=== PATIENT | female | born 1935 | race Two or more races ===

== ENCOUNTER 2021-04-19 07:00 | Inpatient (IN) | payer OTHER ==
[~2021-04-19] VITALS: Ht 170.2 cm; Wt 80.7 kg
[~2021-04-19 07:00] MED LIST: ASA81 MG PO; AVALIDE 300-12.1 TAB PO; LIPITOR40 MG PO; NORVASC5 MG PO
[2021-04-19] MEDS ORDERED: ATACAND16 MG PO (08:46)
[2021-04-19] MEDS ORDERED: BIOTIN5000 MCG PO (08:47)
[2021-04-19] MEDS ORDERED: OMEGA-31000 MG PO (08:47)
[2021-04-19] MEDS ORDERED: TRIPLE FLEX CA1 EACH PO (08:47)
[2021-04-19] MEDS ORDERED: CALTRATE+D3 PL1 EACH PO (08:47)
[2021-04-26] MEDS ORDERED: ALENDRONATE SOD70 MG (08:40)
[2021-04-26] MEDS ORDERED: FAMOTIDINE40 MG (08:41)
[2021-04-26] MEDS ORDERED: LOSARTAN POTAS100 MG (08:41)
[2021-04-26] MEDS ORDERED: DICLOFENAC SOD100 GM (08:41)
[2021-04-26] MEDS ORDERED: KETOROLAC TROMET5 ML (08:41)
== END 2021-04-27 20:44 | DRG 470 ==
LOC: SURH 04-25 06:37 → O/R 04-25 06:37 → SURH 04-25 07:00
PROVIDERS: ADMIT Orthopaedic Surgery; ATTEND Orthopaedic Surgery
PROC: 0QR Lower Bones, Replacement (ICD-10-PCS; 2021-04-25)
PROC: 0SRD0J9 Replacement of Left Knee Joint with Synthetic Substitute, Cemented, Open Approach (ICD-10-PCS; principal; 2021-04-25 14:30)
DX: M17.12 Unilateral primary osteoarthritis, left knee (principal); D62 Acute posthemorrhagic anemia; M85.662 Other cyst of bone, left lower leg; Z20.822 Contact with and (suspected) exposure to COVID-19